=== PATIENT | female | born 1995 | race Caucasian/White ===

== ENCOUNTER → 2018-08-02 | Outpatient (CLI) | payer OTHER | LOC: COL.RAD 09:45 | DX: R11.0 Nausea (principal); R14.0 Abdominal distension (gaseous); R10.9 Unspecified abdominal pain ==

== ENCOUNTER → 2019-06-18 | Outpatient (CLI) | payer OTHER | LOC: COL.RAD 10:53 | DX: R10.2 Pelvic and perineal pain (principal); R25.2 Cramp and spasm; Z97.5 Presence of (intrauterine) contraceptive device ==